=== PATIENT | female | born 1975 | race Caucasian/White ===

== ENCOUNTER 2016-11-01 18:27 | Emergency (ER) | payer OTHER | END 2016-11-01 23:29 | disposition home or self-care (01) | LOC: ER 18:27 | DX: R07.9 Chest pain, unspecified (principal); R20.2 Paresthesia of skin; I25.2 Old myocardial infarction; F32.9 Major depressive disorder, single episode, unspecified; Z79.01 Long term (current) use of anticoagulants; Z88.0 Allergy status to penicillin; Z79.82 Long term (current) use of aspirin; Z79.899 Other long term (current) drug therapy | CPT/HCPCS: 36415; 96361; 96374; 96375; 96376 ==

== ENCOUNTER 2017-01-13 09:25 | Emergency (ER) | payer OTHER | END 2017-01-13 12:09 | disposition home or self-care (01) | LOC: ER 09:25 | DX: G40.209 Localization-related (focal) (partial) symptomatic epilepsy and epileptic syndromes with complex partial seizures, not intractable, without status epilepticus (principal); I25.10 Atherosclerotic heart disease of native coronary artery without angina pectoris; Z86.73 Personal history of transient ischemic attack (TIA), and cerebral infarction without residual deficits; Z88.0 Allergy status to penicillin | CPT/HCPCS: 36415 ==